=== PATIENT | female | born 1950 ===

== ENCOUNTER 2017-04-06 09:35 | Emergency (ER) | payer OTHER, SELFPAY ==
[2017-04-06 09:47] VITALS: TEMP 98.4
[2017-04-06 09:53] VITALS: O2SAT 98
--- NOTE | 2017-04-06 11:50 | ED PDOC ---
HPI: General Adult Time Seen by Provider: 04/06/17 10:06 Chief Complaint (Nursing): Chest Pain History Per: Patient, Dopeman ([place] [id number]) Additional Complaint(s): Pt. states she was instructed by Dr. Doll, surgeon, to be seen by a lens generating machine tender for clearance to have a breast mass removed. Reports that she was seen by Dr. Michael, lens generating machine tender, who ordered an echocardiogram and a stress test for the clearance but when she got to the diagnostic center she was unable to get the test done as they did not accept [facility]. Reports that she does have L breast pain which has been present for > 2 months without any changes in consistency. Denies SOB, hemoptysis, hx of cardiac disease, previous thromboembolic disease, fever, nipple discharge. Past Medical History Reviewed: Historical Data, Nursing Documentation, Vital Signs Vital Signs: Last Vital Signs Temp 98.4 F 04/06/17 09:47 Pulse 84 04/06/17 09:47 Resp 20 04/06/17 09:47 BP 158/76 H 04/06/17 09:47 Pulse Ox 98 04/06/17 09:50 - Medical History PMH: Asthma, Gastritis, HTN - Family History Family History: States: No Known Family Hx - Immunization History Hx Tetanus Toxoid Vaccination: Yes Hx Influenza Vaccination: Yes Hx Pneumococcal Vaccination: (unk) - Allergies Allergies/Adverse Reactions: Allergies Allergy/AdvReac Type Severity Reaction Status Date / Time No Known Allergies Allergy Verified 04/06/17 09:50 Review of Systems ROS Statement: Except As Marked, All Systems Reviewed And Found Negative Physical Exam - Reviewed Nursing Documentation Reviewed: Yes Vital Signs Reviewed: Yes - Physical Exam Appears: Positive for: Well, Non-toxic, No Acute Distress Head Exam: Positive for: ATRAUMATIC, NORMAL INSPECTION, NORMOCEPHALIC Skin: Positive for: Normal Color, Warm. Negative for: Rash Eye Exam: Positive for: EOMI, Normal appearance, PERRL ENT: Positive for: Normal ENT Inspection Neck: Positive for: Normal, Painless ROM Cardiovascular/Chest: Positive for: Regular Rate, Rhythm. Negative for: Bradycardia, Tachycardia Respiratory: Positive for: Normal Breath Sounds. Negative for: Decreased Breath Sounds, Accessory Muscle Use Gastrointestinal/Abdominal: Positive for: Normal Exam, Bowel Sounds, Soft. Negative for: Tenderness Back: Positive for: Normal Inspection Extremity: Positive for: Normal ROM Neurologic/Psych: Positive for: Alert, Oriented. Negative for: Aphasia, Facial Droop - ECG ECG: Positive for: Interpreted By Me ECG Rhythm: Positive for: Sinus Rhythm. Negative for: ST/T Changes Rate: 77 O2 Sat by Pulse Oximetry: 98 - Progress ED Course And Treament: Case d/w Dr. Townsend who recommends speaking with Dr. Doll for disposition. Case d/w Dr. Doll who states that clearance is not emergently needed and that pt. does not require admission. States that clearance is to be done outpatient and pt. does not require admission. Pt. will be given referral to [facility]. Plan discussed with patient using beater engineer [id number]. Pt. verbalized understanding of necessary f/u with [facility]. Disposition - Clinical Impression Clinical Impression: Breast mass in female - Patient ED Disposition Is Patient to be Admitted: No - Disposition Referrals: [facility] [Outside] [facility] [Outside] Disposition Time: 11:45 Condition: STABLE Additional Instructions: GO TO [facility] FOR FURTHER EVALUATION. Instructions: Breast Mass (ED) Print Language: CHADIAN
[2017-04-06 11:54] VITALS: PULSE 77
[2017-04-07 07:57] VITALS: BP 142/75; RESP 14
--- NOTE | 2017-04-12 06:40 | CARD ---
APPROVED REPORT EKG Measurement Heart [id number] <Conclusion> Normal sinus rhythm with sinus arrhythmia Left axis deviation Abnormal ECG
== END 2017-04-06 11:52 | disposition home or self-care (01) ==
LOC: H.ER 09:35
DX: N63 Unspecified lump in breast (principal); N64.4 Mastodynia; I10 Essential (primary) hypertension